=== PATIENT | male | born 1960 | race African-American/Black ===

== ENCOUNTER 2016-05-27 14:04 | Emergency (ER) | payer BC, OTHER ==
[2016-05-27] MEDS ORDERED: OPTIRAY 350 100 ML VIAL HMH IV ONE (14:05)
== END 2016-05-27 19:24 | disposition home or self-care (01) ==
LOC: ER 14:04
DX: M79.662 Pain in left lower leg (principal); M94.0 Chondrocostal junction syndrome [Tietze]; Z79.899 Other long term (current) drug therapy; Z79.82 Long term (current) use of aspirin; E78.5 Hyperlipidemia, unspecified; I10 Essential (primary) hypertension; K21.9 Gastro-esophageal reflux disease without esophagitis
CPT/HCPCS: 36415; 71260; 80053; 83690; 84484; 85025; 85379; 85610; 85730; 93005; 93971